=== PATIENT | female | born 2000 | race Caucasian/White ===

== ENCOUNTER 2021-05-14 14:15 | Emergency (ER) | payer MEDICAID ==
[~2021-05-14 14:15] MED LIST: KEFLEX CAP 500500 MG PO; PYRIDIUM100 MG PO; ZOFRAN ODT 4 MG4 MG PO
[2021-05-14] MEDS ORDERED: CYCLOBENZAPRINE5 MG PO (17:12)
[2021-05-14] MEDS ORDERED: NAPROSYN500 MG PO (17:12)
== END 2021-05-14 17:52 | disposition home or self-care (01) ==
LOC: ER1 14:15
DX: S39.012A Strain of muscle, fascia and tendon of lower back, initial encounter (principal); M25.552 Pain in left hip; F17.200 Nicotine dependence, unspecified, uncomplicated; Z90.49 Acquired absence of other specified parts of digestive tract; X50.0XXA Overexertion from strenuous movement or load, initial encounter
CPT/HCPCS: 72100; 73502; 81001; 84703; 96372; 99283; J1885